=== PATIENT | male | born 1965 | race Hispanic/Latino ===

== ENCOUNTER 2021-09-18 07:59 | Day surgery (SDC) | payer BC ==
[2021-09-12 14:22] LABS: BASOPHILS % (AUTO) 0.5 % (0.0-5.0); EOSINOPHILS % (AUTO) 1.8 % (0.0-8.0); HEMATOCRIT 43.4 % (42-54); LYMPHOCYTES % (AUTO) 25.6 % (21.0-51.0); MEAN CORPUSCULAR HEMOGLOBIN 29.9 pg (27.0-33.0); MEAN CORPUSCULAR HGB CONC 33.4 g/dL (32.0-36.0); MEAN CORPUSCULAR VOLUME 89.5 fL (79-99); MONOCYTES % (AUTO) 10.3 % (3.0-13.0); NEUTROPHILS % (AUTO) 61.4 % (40.0-77.0); PLATELET COUNT (AUTO) 218 K/uL (130-400); RED BLOOD CELL COUNT(AUTO) 4.85 MIL/uL (4.50-6.20); RED CELL DISTRIBUTION WIDTH 13.4 % (11.0-15.5); WHITE BLOOD COUNT (AUTO) 5.7 K/uL (4.8-10.8)
[2021-09-12 14:31] LABS: CREATININE 0.9 mg/dL (0.5-1.5); POTASSIUM 4.4 mmol/L (3.5-5.1)
[2021-09-17 12:49] VITALS: BP 109/74
[2021-09-18] VITALS (14 sets, daily range): BP systolic 100–126; BP diastolic 73–95
[~2021-09-18] VITALS: Ht 180.3 cm; Wt 113.2 kg
[~2021-09-18 07:59] MED LIST: 0.9% NACL 500ML IV.SOLN 500 ML IV SCH; FEXO180T94 PO; METO-408 PO; MONT-39 PO; RIVA20TA PO; ROSU10TA22 PO
[2021-09-18] MEDS ORDERED: 0.9%NACL 1000ML 1,000 ML IV ONE (09:00)
[2021-09-18] MEDS ORDERED: LIDOCAINE HCL 2% VISCOUS 15 ML UDCUP ONE (09:08)
[2021-09-18 09:15] LABS: INR 1.26 (0.85-1.15); PROTHROMBIN TIME 13.6 SEC (9.6-11.6)
[2021-09-18 09:16] LABS: PARTIAL THROMBOPLASTIN TIME 41.3 SEC (26.3-35.5)
[2021-09-18] MEDS ORDERED: PROPOFOL 10 MG/ML 20ML VIAL IV ONE (09:35)
== END 2021-09-18 11:20 | disposition home or self-care (01) ==
LOC: DAH 07:59
PROVIDERS: ATTEND Internal Medicine Cardiovascular Disease
DX: I48.0 Paroxysmal atrial fibrillation (principal); I34.0 Nonrheumatic mitral (valve) insufficiency; I51.3 Intracardiac thrombosis, not elsewhere classified; E78.5 Hyperlipidemia, unspecified; J45.909 Unspecified asthma, uncomplicated; R60.9 Edema, unspecified; J09.X9 Influenza due to identified novel influenza A virus with other manifestations; Z79.899 Other long term (current) drug therapy; Z79.01 Long term (current) use of anticoagulants; Z72.89 Other problems related to lifestyle; Z82.49 Family history of ischemic heart disease and other diseases of the circulatory system; Z83.3 Family history of diabetes mellitus; Z98.890 Other specified postprocedural states
CPT/HCPCS: 80048; 85025; 85730 ×2; 36415 ×2; 85610; 93325; 93312; 93005; A4223 ×3; J7030; J2704; A4215; A4657; A7002; A4222; A4221; A4663; A4216; A4606; 92960; 99156

== ENCOUNTER 2021-10-08 08:32 | Day surgery (SDC) | payer BC ==
[2021-10-03 15:00] LABS: BASOPHILS % (AUTO) 0.5 % (0.0-5.0); HEMATOCRIT 43.8 % (42-54); LYMPHOCYTES % (AUTO) 22.4 % (21.0-51.0); MEAN CORPUSCULAR HEMOGLOBIN 29.6 pg (27.0-33.0); MEAN CORPUSCULAR HGB CONC 33.3 g/dL (32.0-36.0); MEAN CORPUSCULAR VOLUME 88.8 fL (79-99); NEUTROPHILS % (AUTO) 64.9 % (40.0-77.0); PLATELET COUNT (AUTO) 229 K/uL (130-400); RED BLOOD CELL COUNT(AUTO) 4.93 MIL/uL (4.50-6.20); RED CELL DISTRIBUTION WIDTH 13.4 % (11.0-15.5); WHITE BLOOD COUNT (AUTO) 5.8 K/uL (4.8-10.8)
[2021-10-03 15:10] LABS: POTASSIUM 4.4 mmol/L (3.5-5.1)
[2021-10-03 15:13] LABS: INR 1.06 (0.85-1.15); PROTHROMBIN TIME 11.5 SEC (9.6-11.6)
[2021-10-03 15:14] LABS: PARTIAL THROMBOPLASTIN TIME 33.9 SEC (26.3-35.5)
[2021-10-07 10:49] VITALS: BP 114/75
[~2021-10-08] VITALS: Ht 180.3 cm; Wt 110.9 kg
[~2021-10-08 08:32] MED LIST changes: -0.9% NACL 500ML IV.SOLN 500 ML IV SCH
[2021-10-08 09:00] VITALS: BP 97/65
[2021-10-08] MEDS ORDERED: SUCCINYLCHOLINE 200MG/10ML SYR ONE (10:19)
[2021-10-08] MEDS ORDERED: ATROPINE 1MG SYG IVP ONE (10:19)
[2021-10-08] MEDS ORDERED: PROPOFOL 10 MG/ML 20ML VIAL IV ONE (10:19)
[2021-10-08] MEDS ORDERED: LIDOCAINE PF 100MG/5ML (2%) SYRINGE 5ML ONE (10:25)
[2021-10-08] MEDS ORDERED: LIDOCAINE HCL 2% VISCOUS 15 ML UDCUP ONE (10:28)
[2021-10-08 11:15] VITALS: BP 101/61
[2021-10-08] MEDS ORDERED: SOTA80TA PO (11:28)
[2021-10-08 11:30] VITALS: BP 106/73
[2021-10-08 12:00] VITALS: BP 103/74
[2021-10-08 12:30] VITALS: BP 106/70
== END 2021-10-08 13:00 | disposition home or self-care (01) ==
LOC: DAH 08:32 → EDSTATUS 11:00 → DAH 13:00
PROVIDERS: ATTEND Internal Medicine Cardiovascular Disease
DX: I48.0 Paroxysmal atrial fibrillation (principal); I10 Essential (primary) hypertension; E78.5 Hyperlipidemia, unspecified; J45.909 Unspecified asthma, uncomplicated; R60.9 Edema, unspecified; Z86.16 Personal history of COVID-19; Z79.01 Long term (current) use of anticoagulants
CPT/HCPCS: 87426; 80048; 85025; 85610; 85730; 36415; 93005; 92960; 93312; 93325; J2001; J2704; A4215; A4222; A4221; A4663; A4216; A4606; A4223 ×3; 99152; J0330; J0461

== ENCOUNTER → 2021-10-11 | Outpatient (CLI) | payer BC ==
[~2021-10-11] MED LIST changes: -METO-408 PO; +REGADENOSON 0.4 MG/5 ML PF SYG IVP SCH; +SOTA80TA PO
== END | disposition home or self-care (01) ==
LOC: SHCH 08:25
PROVIDERS: ATTEND Internal Medicine Cardiovascular Disease
DX: I48.0 Paroxysmal atrial fibrillation (principal)
CPT/HCPCS: 78452; 96374; 93017; J2785; A9500 ×2

== ENCOUNTER 2022-05-22 06:06 | Day surgery (SDC) | payer BC ==
[2022-05-20 13:49] LABS: BASOPHILS % (AUTO) 0.6 % (0.0-5.0); EOSINOPHILS % (AUTO) 2.2 % (0.0-8.0); LYMPHOCYTES % (AUTO) 30.8 % (21.0-51.0); MEAN CORPUSCULAR HEMOGLOBIN 30.1 pg (27.0-33.0); MEAN CORPUSCULAR HGB CONC 33.6 g/dL (32.0-36.0); MEAN CORPUSCULAR VOLUME 89.6 fL (79-99); MONOCYTES % (AUTO) 11.6 % (3.0-13.0); NEUTROPHILS % (AUTO) 54.4 % (40.0-77.0); PLATELET COUNT (AUTO) 222 K/uL (130-400); RED BLOOD CELL COUNT(AUTO) 4.91 MIL/uL (4.50-6.20); RED CELL DISTRIBUTION WIDTH 12.4 % (11.0-15.5); WHITE BLOOD COUNT (AUTO) 4.7 K/uL (4.8-10.8)
[2022-05-20 13:59] LABS: CREATININE 0.8 mg/dL (0.5-1.5); POTASSIUM 4.3 mmol/L (3.5-5.1)
[2022-05-20 14:01] LABS: PROTHROMBIN TIME 10.9 SEC (9.6-11.6)
[2022-05-20 14:02] LABS: PARTIAL THROMBOPLASTIN TIME 31.6 SEC (26.3-35.5)
[2022-05-20 15:04] VITALS: BP 105/71
[2022-05-22] VITALS (9 sets, daily range): BP systolic 104–151; BP diastolic 66–84
[~2022-05-22] VITALS: Ht 180.3 cm; Wt 111.3 kg
[~2022-05-22 06:06] MED LIST changes: +CELE200 PO; -FEXO180T94 PO; +FLEC50TA3 PO; -MONT-39 PO; +PREG75 PO; -REGADENOSON 0.4 MG/5 ML PF SYG IVP SCH; -RIVA20TA PO; -SOTA80TA PO; +TADA5TAB13 PO
[2022-05-22] MEDS ORDERED: 0.9%NACL 1000ML 1,000 ML IV ONE (06:17)
[2022-05-22] MEDS ORDERED: LIDOCAINE HCL 400MG/20ML VIAL ONE (07:13)
[2022-05-22] MEDS ORDERED: MIDAZOLAM HCL 1 MG/ML 2ML VIAL ONE ×2 (07:14→09:25)
[2022-05-22] MEDS ORDERED: MEPERIDINE-PF 25 MG/ML SYG ONE ×4 (07:14→09:28)
[2022-05-22] MEDS ORDERED: HEPARIN 10,000 UNIT/10ML (1,000 UNIT/ML) VIAL ONE (07:15)
[2022-05-22] MEDS ORDERED: ISOPROTERENOL HCL 0.2 MG/ML AMP/VIAL/BAG ONE ×2 (07:55→07:59)
[2022-05-22] MEDS ORDERED: VERA180T61 PO (11:54)
[2022-05-22] MEDS ORDERED: ACETAMINOPHEN WITH CODEINE 1 TAB TAB PO PRN (12:00)
== END 2022-05-22 14:00 | disposition home or self-care (01) ==
LOC: DAH 06:06
PROVIDERS: ATTEND Internal Medicine Cardiovascular Disease
DX: I49.3 Ventricular premature depolarization (principal); I48.0 Paroxysmal atrial fibrillation; Z88.8 Allergy status to other drugs, medicaments and biological substances; Z91.040 Latex allergy status; Z91.010 Allergy to peanuts; Z86.16 Personal history of COVID-19; Z82.49 Family history of ischemic heart disease and other diseases of the circulatory system; Z83.3 Family history of diabetes mellitus
CPT/HCPCS: 80048; 85025; 85610; 85730; 36415; 93005; 93654; 93623; C1894 ×3; C1731; A4649 ×2; C1732; J3490 ×3; J7030; J1644 ×3; J2250; J2175 ×4; A4215; A4222; A4221; A4663; A4216; A4606; A4223 ×3; 99156; 99157

== ENCOUNTER 2024-02-25 07:30 | Day surgery (SDC) | payer BC ==
[2024-02-23 14:13] VITALS: BP 129/84; PULSE 59; RESP 14; TEMP 98.6
[2024-02-23 14:29] LABS: BASOPHILS # (AUTO) 0.04 K/uL (0.00-0.20); BASOPHILS % (AUTO) 0.7 % (0.0-5.0); EOSINOPHILS # (AUTO) 0.09 K/uL (0.00-0.70); EOSINOPHILS % (AUTO) 1.6 % (0.0-8.0); HEMATOCRIT 43.8 % (42-54); IMMATURE GRANULOCYTE ABSOLUTE 0.03 K/uL (0-1); LYMPHOCYTES # (AUTO) 1.3 K/uL (1.0-4.8); LYMPHOCYTES % (AUTO) 24.3 % (21.0-51.0); MEAN CORPUSCULAR HEMOGLOBIN 30.1 pg (27.0-33.0); MEAN CORPUSCULAR HGB CONC 33.3 g/dL (32.0-36.0); MEAN CORPUSCULAR VOLUME 90.3 fL (79-99); MONOCYTES # (AUTO) 0.7 K/uL (0.1-1.0); MONOCYTES % (AUTO) 11.8 % (3.0-13.0); NEUTROPHILS # (AUTO) 3.4 K/uL (1.8-7.7); NEUTROPHILS % (AUTO) 61.1 % (40.0-77.0); PLATELET COUNT (AUTO) 225 K/uL (130-400); RED BLOOD CELL COUNT(AUTO) 4.85 MIL/uL (4.50-6.20); RED CELL DISTRIBUTION WIDTH 12.6 % (11.0-15.5); WHITE BLOOD COUNT (AUTO) 5.5 K/uL (4.8-10.8)
--- NOTE | 2024-02-23 14:56 | EKG ---
[facility] Test Date: 2024-02-23 Test Time: 15:03:22 Pat Name: PAOLO HOLT Department: [facility] Room: Gender: Lathe Puller: [id number] : 1965 Requested By: TE GOULD Order Number: [id number] Reading MD: Nia Ghotra Measurements Intervals [place] Rate: 60 P: 59 [place]: 211 QRS: 54 QRSD: 112 T: 28 QT: 429 QTc: 428 Interpretive Statements Sinus rhythm Prolonged [place] interval Borderline ST elevation, lateral leads Compared to ECG 01/01/2024 16:42:05 First degree AV block now present ST (T wave) deviation now present Electronically Signed On 02-24-2024 17:09:34 CLOTH CHECKER by Nia Ghotra Please click the below link to view image of tracing.
[2024-02-23 15:01] LABS: CREATININE 0.8 mg/dL (0.5-1.3)
--- NOTE | 2024-02-23 15:17 | NUR ---
REPORT DR GOULD INFORMED PT STOP TAKING ELIQUIS APPROX A MONTH AGO. NO ORDERS GIVEN AT THIS TIME. MD IS GOING TO REVIEW PTS CHART AND THEN DECIDE IF PROCEDURE IS STILL OK TO PROCEED
[2024-02-23 15:29] LABS: INR 0.97 (0.85-1.15); PROTHROMBIN TIME 10.9 SEC (9.6-11.6)
[2024-02-23 15:30] LABS: PARTIAL THROMBOPLASTIN TIME 30.4 SEC (26.3-35.5)
[~2024-02-25] VITALS: Ht 154.9 cm; Wt 121.1 kg
[2024-02-25] VITALS (22 sets, daily range): BP systolic 89–133; BP diastolic 49–84; PULSE 52–78; RESP 9–22; TEMP 97.1–98
[~2024-02-25 07:30] MED LIST changes: -CELE200 PO; +FLEC100T3 PO; -FLEC50TA3 PO; +METO-408 PO; +PHARMACY COMMUNICATION MISC SCH; -PREG75 PO; -ROSU10TA22 PO; -TADA5TAB13 PO
[2024-02-25] MEDS: 0.9%NACL 1000ML 1,000 ML IV SCH (08:32)
[2024-02-25] MEDS ORDERED: LIDOCAINE HCL 2% VISCOUS 15 ML UDCUP PO ONE (09:30)
[2024-02-25] MEDS ORDERED: LIDOCAINE PF 100MG/5ML (2%) SYRINGE 5ML ONE ×2 (09:40→14:13)
[2024-02-25] MEDS ORDERED: proPOFol 10 MG/ML 20ML VIAL IV ONE ×3 (09:41→14:13)
[2024-02-25] MEDS ORDERED: GLYCOPYRROLATE 0.2 MG/ML 5 ML VIAL ONE (09:41)
[2024-02-25] MEDS ORDERED: ketaMINE 50MG/ML SYRINGE 50 MG/ML DISP.SYRIN ONE ×2 (09:41→14:15)
--- NOTE | 2024-02-25 10:20 | HMCSR ---
APPROVED REPORT EXAM: Transesophageal echocardiogram with color flow Doppler. INDICATION ICD: I48.0 Chronic AF Reason For Test : Rule out Intracardiac Thrombus. PROCEDURE After obtaining informed consent, patient underwent transesophageal echo in the daypatient 15. 15 mL 2% Viscous Lidocaine was given as a topical anesthetic prior to the administration of the consc ious sedation. Type of Sedation: General Anesthesia Sedation was administered by please refer to medication administration record. . Sedation was achieved with please refer to medication administration record. intravenously. Transesophageal probe was inserted and advanced into esophagus without difficulty by Raven Terry MD. GRACIE was performed and images were obtained, probe was removed without complications. Throughout the procedure, the blood pressure, pulse oximetry, cardiac rhythm, and rate were monitored . Left Ventricle The left ventricle structure and function is normal. There is normal left ventricular wall thickness. LVEF is 50-55%. No left ventricle thrombus noted on this study. Right Ventricle The right ventricle is severely dilated. The right ventricular systolic function is normal. Atria The left atrium is severely dilated. No left atrial appendage thrombus noted. No evidence of PFO/ASD by color doppler. The right atrium is severely dilated. Aortic Valve The aortic valve is normal in structure and function. Trivial aortic regurgitation is present. No aor tic valvular vegetation. There is no aortic valvular stenosis. Mitral Valve The mitral valve is normal in structure and function. There is mild mitral valve regurgitation noted. No mitral valve vegetation. There is no mitral valve stenosis. Tricuspid Valve The tricuspid valve is normal in structure and function. There is trivial tricuspid valve regurgitati on noted. No tricuspid valve vegetation. Pulmonic Valve The pulmonary valve is normal in structure and function. There is trivial pulmonic valvular regurgita tion. Great Vessels The aortic root is normal in size. No aortic calcifications, dissection, or aneurysm. Pericardium The pericardium appears normal. No pericardial effusion. Conclusion LVEF is 50-55%. The right ventricle is severely dilated. The left atrium is severely dilated. No left atrial appendage thrombus noted. No evidence of PFO/ASD by color doppler. No intracardiac thrombus. Trivial aortic regurgitation is present. There is mild mitral valve regurgitation noted.
[2024-02-25] MEDS ORDERED: SUCCINYLCHOLINE CHLORIDE 20 MG/ML 10 ML VIAL ONE (14:13)
[2024-02-25] MEDS ORDERED: rocuRONium bROMide 10MG/1ML 5ML VL ONE ×3 (14:13→17:07)
[2024-02-25] MEDS ORDERED: ondanSETRON 4MG INJ ONE (14:13)
[2024-02-25] MEDS ORDERED: dexaMETHasone SOD PHOSPHATE 10MG/ML 1ML VIAL ONE (14:13)
[2024-02-25] MEDS ORDERED: FENTanyl CITRate PF 50 MCG/1 ML 2ML VIAL ONE (14:13)
[2024-02-25] MEDS ORDERED: phenylEPHRINE HCL 10 MG/ML 1ML VIAL IV ONE ×2 (14:13→17:07)
--- NOTE | 2024-02-25 14:36 | NUR ---
PT GOING TO CASINO CASHIER MANAGER WITH RN AT THIS TIME
[2024-02-25] MEDS ORDERED: LIDOCAINE HCL 1% MDV 50ML VIAL ONE (15:09)
[2024-02-25] MEDS ORDERED: HEParin-NS 1,000 UNIT/500 ML 1,000 ML IV ONE (15:09)
[2024-02-25] MEDS ORDERED: HEParin-NS 1,000 UNIT/500 ML 500 ML IV ONE ×2 (15:11→15:45)
[2024-02-25] MEDS ORDERED: HEParin 10,000 UNIT/10ML (1,000 UNIT/ML) VIAL ONE ×3 (15:11→17:06)
[2024-02-25] MEDS ORDERED: FAMOTIDINE 20MG VIAL IV ONE (15:22)
[2024-02-25] MEDS ORDERED: NOREPINEPHRINE BITARTRATE 1 MG/1 ML ML IV ONE (15:24)
[2024-02-25] MEDS ORDERED: PROTamine SULFate 10 MG/ML 25ML VIAL IV ONE (18:10)
[2024-02-25] MEDS ORDERED: SUCR1TAB28 PO (18:22)
[2024-02-25] MEDS ORDERED: APIX5TAB PO (18:22)
[2024-02-25] MEDS ORDERED: PANT40TA55 PO (18:22)
--- NOTE | 2024-02-25 19:30 | NUR ---
PT ARRIVED ON UNIT WITH NO ADMIN ORDERS. HOUSE WAS MADE AWARE. ADVISED PT WILL NOT BE ADMITTED DUE TO PT ONLY HERE FOR HOLDING AND WILL BE D/C AT 2129. CHARGE NURSE AND CLINICAL SUP AWARE OF SITUATION. VERIFIED PT WITH NAME AND . PT ARRIVED IN BED AND ON ROOM AIR. PT WAS EDUCATED ON NEEDING TO KEEP LEG STRAIGHT. PT STATS HAVE SEVERE BACK PAIN DUE TO HX OF BACK SX. MD WAS NOTIFIED AND GAVE ORDERS FOR PAIN MEDS. DUE TO NOT ADMITTED WAS ABLE TO PULL MEDS FROM PT PROFILE LISTED IN DAY PT ROOM NUMBER 8. CLINICAL SUP AWARE OF PLANS AND WAS OK FOR ME TO PROCEED. IV IS IN PLACE ON LEFT HAND 20G IV FLUIDS FROM DAY PT RUNNING. RIGHT GROIN SITE DRY AND INTACT NO HEMATOMA. CORDELL DORSALIS PEDIS PULSE STRONG AND PALPABLE. WILL REMAIN IN PT ROOM TO KEEP SITE OK TO BE D/C BY 2129 ORDERED BY . Addendum: 02/25/24 at 2114 by DENG CARRASCO RN RN was unable to pull med
[2024-02-25] MEDS: acetaMINOPHEN WITH coDEINE 1 TAB TAB PO ONE (20:00)
[2024-02-25] MEDS: PANTOPrazole 40 MG TAB DR PO ONE ×2 (20:50→20:59)
[2024-02-25] MEDS: SUCRALFATE 1 GM/10 ML PO ONE ×2 (20:50→20:59)
--- NOTE | 2024-02-25 20:54 | NUR ---
DISCHARGE D/C INSTRUCTIONS GIVEN TO PT AND BOTH VERBALIZED UNDERSTANDING. IV AND TELE PACK REMOVED. PROVIDED PT WITH MEDICATIONS NEEDED FOR POST PROCEDURE. SUCRALFATE ORAL SUSPENSION AND PROTONIX PO SCHEDULED PER MD. REPORT GIVEN TO NIGHT NURSE THAT D/C PAPERS HAVE BEEN DONE AND PT IS OK TO GO HOME ONCE WHEELCHAIR AND RIDE IS AVAILABLE. AT BEDSIDE. PT STILL ON ROOM AIR AND TOLERATING WELL. PT DID STAND UP AND RIGHT GROIN WAS STILL DRY AND INTACT WITH NO SIGNS OF HEMATOMA. VITALS SIGNS WERE STABLE.
--- NOTE | 2024-02-25 21:15 | NUR ---
REMINDER PT WAS NOT IN DAY PT HE WAS TRANSFERRED FROM RECOVERY TO ROOM 230 WITH NO ADMIN ORDERS. MARIAM,CLINICAL SUP, AND CHARGE NURSE MADE AWARE. WAS ADVISED TO JUST HOLD PT WE WOULD IN RECOVERY. MARIAM WAS MADE AWARE UNABLE TO PULL MEDS. SPOKE WITH PHARMACY TO HELP WITH MED PULL. WAS ABLE TO PROVIDE MEDICATIONS WITH THE HELP OF PHARMACY.
--- NOTE | 2024-02-25 21:45 | NUR ---
Pt discharged to home via personal vehicle. Removed any IVs and made sure the right groin site was clean, dry, and with no hematomas present. Transported pt to vehicle with wheelchair and assisted into vehicle. Pt departed in vehicle for home.
== END 2024-02-25 21:45 | disposition home or self-care (01) ==
LOC: DAH 07:30
PROVIDERS: ATTEND Internal Medicine Cardiovascular Disease
DX: I48.0 Paroxysmal atrial fibrillation (principal); I48.19 Other persistent atrial fibrillation; I08.3 Combined rheumatic disorders of mitral, aortic and tricuspid valves; I49.3 Ventricular premature depolarization; I37.1 Nonrheumatic pulmonary valve insufficiency; Z90.49 Acquired absence of other specified parts of digestive tract; Z98.890 Other specified postprocedural states; Z91.010 Allergy to peanuts; Z88.8 Allergy status to other drugs, medicaments and biological substances; Z79.899 Other long term (current) drug therapy
CPT/HCPCS: 80048; 85025; 85610; 85730; 36415 ×2; 93005; 93656; 85347 ×8; 93325; 93312; C1894 ×3; C1732 ×3; A4649 ×2; C1760 ×2; C1766; J3490 ×9; J3010; J1100; J0330; J7030; J2003 ×2; J1644 ×6; J2704 ×3; J2405; J2371 ×2; A4215; A4222; A4221; A4663; A4216; A4606; J2720; A4223 ×3